=== PATIENT | male | born 1955 | race Caucasian/White ===

== ENCOUNTER 2017-07-11 12:56 | Emergency (ER) | payer SELFPAY ==
[~2017-07-11] VITALS: Ht 180.3 cm; Wt 90.0 kg
[2017-07-11 12:58] VITALS: BP 164/89; PULSE 74; RESP 15; TEMP 98.2; O2SAT 97
--- NOTE | 2017-07-11 13:20 | PD ---
Physical Exam Date Seen by Provider: Jul 11, 2017 Time Seen by Provider: 13:19 Narrative 62-year-old male presents to emergency Department with an over 10 left knee pain. Patient states he woke up with her yesterday and has gotten progressively worse. Patient is unsure if he did anything, but may have injured it while putting up fences. Patient has no known drug allergies. Data Data Last Documented VS Vital Signs Date Time Temp Pulse Resp B/P (MAP) Pulse Ox O2 Delivery O2 Flow Rate FiO2 07/11/17 12:58 98.2 74 15 164/89 (114) 97 MDM Medical Record Reviewed: Yes Supervised Visit with DESHAUN: Yes Narrative Course Vital signs are stable. X-ray of the left knee is ordered. Patient is awaiting med bed placement. Condition: Stable Harry Marcial Jul 11, 2017 13:20
--- NOTE | 2017-07-11 14:03 | RADRPT ---
EXAM DATE/TIME: 07/11/2017 13:45 [facility] COMPARISON: No previous studies available for comparison. INDICATIONS : Left knee pain, hurt putting up a fence., woke up with pain yesterday. MEDICAL HISTORY : hurt right knee years ago. SURGICAL HISTORY : None. ENCOUNTER: Initial ACUITY: 2 days PAIN SCORE: 10/10 LOCATION: Left knee FINDINGS: Bone density is normal. There is a large flocculent oval-shaped area of heterotopic ossification loc ated lateral to the femoral condyle measuring 3.8 x 1.5 cm. No fracture seen. There is some fullnes s of the suprapatellar soft tissues; no knee effusion cannot be excluded. No radiopaque foreign bodi es. CONCLUSION: 1. No fracture seen. Possible knee effusion. 2. Greater than 3 cm area of heterotopic ossification medial to the femoral condyle, possibly related to remote trauma. Boaz Mason MD on July 11, 2017 at 14:00 Board Certified Radiologist. This report was verified electronically.
--- NOTE | 2017-07-11 14:57 | PD ---
HPI Chief Complaint: Injury Time Seen by Provider: 14:54 Travel History International Travel<30 days: No Contact w/Intl Traveler<30days: No Traveled to known affect area: No History of Present Illness HPI 62-year-old male presents to emergency department complaint of left knee pain started last night. Thinks he may have twisted it while working yesterday, but doesn't know for sure. Pain is to the lateral aspect. Denies paresthesias, loss of sensation to the affected extremity. Says he cannot apply pressure to the affected extremity. Rates pain 10/10. Describes it as a throbbing sensation. Has not taken any medication or tried any treatments to alleviate his symptoms. Pain is aggravated with extension of the leg, movement, palpation , ambulation. No known relieving factors. No known allergies. Has no other medical complaints. No other modifying factors or associated signs and symptoms. PFSH Social History Tobacco Use: No Allergies-Medications (Allergen,Severity, Reaction): Coded Allergies: No Known Allergies (Unverified , 07/11/17) Reported Meds & Prescriptions Reported Meds & Active Scripts Active Ibuprofen 800 Mg Tab 800 Mg PO Q8H PRN Review of Systems Except as stated in HPI: all other systems reviewed are Neg Physical Exam Narrative GENERAL: Well-nourished, well-developed male patient, in no acute distress; afebrile, nontoxic-appearing SKIN: Warm and dry. HEAD: Atraumatic. Normocephalic. EYES: Pupils equal and round. No scleral icterus. No injection or drainage. ENT: Mucosa pink and moist. Airway patent. NECK: Trachea midline. CARDIOVASCULAR: Regular rate. RESPIRATORY: No accessory muscle use. GASTROINTESTINAL: Flat. MUSCULOSKELETAL: Left knee nonedematous, nonerythematous, and without ecchymosis ; full range of motion and flexion to 90; decreased active extension of the knee; point tenderness to the lateral aspect; joint stable with negative drawer test; no obvious deformity. Left Lower extremity is supple and non-tense with 2 + pedal pulse and sensory intact and without erythema or edema. Unable to assess ambulation. NEUROLOGICAL: Awake and alert. Oriented 3. No obvious cranial nerve deficits. Motor grossly within normal limits. Normal speech. PSYCHIATRIC: Appropriate mood and affect; insight and judgment normal. Data Data Last Documented VS Vital Signs Date Time Temp Pulse Resp B/P (MAP) Pulse Ox O2 Delivery O2 Flow Rate FiO2 07/11/17 12:58 98.2 74 15 164/89 (114) 97 Orders Orders Knee, Complete (4vws) (07/11/17 13:20) Splint Or Brace Apply/Monitor (07/11/17 15:02) Crutches (07/11/17 15:02) Ibuprofen (Motrin) (07/11/17 15:15) Ed Discharge Order (07/11/17 15:02) MDM Medical Decision Making Medical Screen Exam Complete: Yes Emergency Medical Condition: Yes Medical Record Reviewed: Yes Differential Diagnosis Knee sprain, bursitis, arthritis, less likely fracture or dislocation Narrative Course 62-year-old male with left knee pain. Unknown injury. Left knee x-ray ordered in triage. Ibuprofen administered in the ER. 1454: Left knee x-ray concludes: Knee X-Ray 07/11/17 1320 Signed Impressions: Service Date/Time: Tuesday, July 11, 2017 13:45 - CONCLUSION: 1. No fracture seen. Possible knee effusion. 2. Greater than 3 cm area of heterotopic ossification medial to the femoral condyle, possibly related to remote trauma. Boaz Mason MD X-ray Findings discussed with patient. Patient provided copy of x-ray report. Crutches and Renny bandage provider for support. Walker and ibuprofen prescribed for home. Instructed patient to follow up with orthopedics. Instructed patient to follow up with primary care provider. Patient verbalizes understanding and agreement with treatment plan. Patient is medically cleared and stable for discharge. Discussed reasons to return to the emergency department. Patient agrees with treatment plan. The patients vital signs are stable and the patient is stable for outpatient follow-up and treatment. Patient discharged home, stable and in no acute distress. 1517: Patient left prior to receiving crutches, Renny bandage, discharge instructions and prescriptions. Diagnosis Primary Impression: Left knee pain Qualified Codes: M25.562 - Pain in left knee Referrals: Orthopaedic Surgeon Primary Care Physician Patient Instructions: General Instructions, Knee Pain (ED) Additional Instructions: Tylenol or ibuprofen as needed and as directed to reduce pain and inflammation Rest, ice, compress, and elevate extremity to decrease pain and inflammation Knee brace for support Crutches, walker, cane for support Avoid aggravating activity; increase activity as tolerated Follow-up with primary care provider Follow-up with orthopedics Return to the emergency department immediately with worsening symptoms Med/Other Pt SpecificInfo: Prescription(s) given Scripts Ibuprofen (Ibuprofen) 800 Mg Tab 800 MG PO Q8H Y for PAIN SCALE 1 TO 10, #30 TAB 0 Refills Prov: Sandhya Calhoun 07/11/17 Disposition: 01 DISCHARGE HOME Condition: Stable Sandhya Calhoun Jul 11, 2017 14:57
[2017-07-11] MEDS ORDERED: IBUP800T23 PO (14:59)
[2017-07-11] MEDS ORDERED: IBUPROFEN 800 MG TAB PO ONE (15:15)
== END 2017-07-11 15:19 | disposition home or self-care (01) ==
LOC: NEPK 12:56
DX: M25.562 Pain in left knee (principal)
CPT/HCPCS: 73564; 99283; E0113